=== PATIENT | female | born 1990 | race Caucasian/White ===

== ENCOUNTER 2016-04-30 06:34 | Day surgery (SDC) | payer OTHER ==
[~2016-04-30 06:34] MED LIST: CEFAZOLIN SODIUM 1 GM in DEXTROSE 5%-WATER 50 ML IV PRN; RINGERS SOLUTION,LACTATED 1,000 ML IV PRN
[2016-04-30] MEDS ORDERED: MIDAZOLAM 2 MG/2 ML INJ ONE ×2 (06:55→06:56)
[2016-04-30] MEDS ORDERED: DIPHENHYDRAMINE HCL 50 MG/ML VIAL ONE (06:55)
[2016-04-30] MEDS ORDERED: FENTANYL CITRATE INJ/PF 100 MCG/2 ML AMPUL ONE (06:56)
[2016-04-30] MEDS ORDERED: ONDANSETRON HCL INJ/PF 4 MG/2 ML SDV ONE (06:56)
[2016-04-30] MEDS ORDERED: PROPOFOL INJ 200 MG/20 ML VIAL IV ONE (06:57)
[2016-04-30] MEDS ORDERED: LIDOCAINE 2% INJ-PF (20 MG/ML) 10 ML AMPUL ONE (06:57)
[2016-04-30] MEDS ORDERED: LIDOCAINE 2% INJ (20 MG/ML) 20 ML MDV ONE (07:24)
[2016-04-30] MEDS ORDERED: BUPIVACAINE HCL 0.5 % INJ/PF 30 ML SDV ONE (07:24)
[2016-04-30] MEDS ORDERED: POVIDONE-IODINE 10% OINTMENT 28.4 GM ONE (07:25)
[2016-04-30] MEDS ORDERED: CEFAZOLIN 1 GM/D5W RTU 1 GM/50 ML RTUPB IV ONE (07:25)
[2016-04-30] MEDS ORDERED: DEXAMETHASONE SOD PHOS INJ 10 MG/1 ML VIAL ONE (07:28)
--- NOTE | 2016-04-30 09:13 | [facility] OPERATIVE REPORT E ---
[facility] Operative Report NAME: VALERY OLSEN AGE: 26Y DATE OF SURGERY: 04/30/2016 ROOM: PREOPERATIVE DIAGNOSIS: Onychoincurvatus hallux bilateral. POSTOPERATIVE DIAGNOSIS: Onychoincurvatus hallux bilateral. PROCEDURES PERFORMED: 1. Partial nail avulsion, medial and lateral nail borders, hallux bilateral. 2. Partial matrixectomy, medial and lateral corners of matrix, hallux bilateral. SURGEON: JAIRO GARCIA D.P.M. SPECIMENS REMOVED: Matrix tissue. PROCEDURE: With the patient laying in a dorsal recumbent position, both feet were prepped and draped in the usual standard sterile orthopedic manner after the local anesthesia was utilized which was a 50/50 mixture of 2% Xylocaine and 0.5% Marcaine. The local anesthesia was infiltrated around the right and left hallux. After the anesthetic effect was accomplished, attention was directed to the right hallux first. The medial and lateral incurvated nail borders of the right hallux were removed in toto and the nail grooves were cleaned from any debris. After that, a digital tourniquet was applied at the base of the right hallux to control hemostasis. The 2 oblique incisions 1 cm in length were placed at the junction of the medial and lateral corners of the eponychium with the proximal medial and lateral corners of the nail grooves. The incisions were angulated about 45 degrees to the long axis of the distal phalanx. At this point, the skin flaps were created and the corners on the medial and lateral side were visualized. Both corners of the matrix were sharply excised. After that, the bone was curetted and finally electrodesiccation was performed to assure total destruction of any remnants of nail tissue which might give free generation of the nail tissue. At this point, the area was irrigated. The spaces were packed with Gelfoam. The skin flaps were repositioned and anchored down with 4-0 nylon using continuous interlocked stitch. A Betadine compression dressing was applied around the right hallux. The digital tourniquet was removed. Circulation to the right hallux returned to normal immediately as the normal digital color and temperature became apparent. Next, attention was directed to the left hallux and exactly the same procedures were performed at this time. The patient tolerated procedures well and left the operating room with stable vital signs and in good condition. The patient was taken to the recovery room alert, conscious, and oriented. There are no permanent disabilities anticipated at this time. DICTATING PHYSICIAN: JAIRO GARCIA D.P.M. [id number] PHY#: [id number] ID: [id number] JOB#: [id number] ACCT: [id number] cc:JAIRO GARCIA D.P.M. >
== END 2016-04-30 09:36 | disposition home or self-care (01) ==
LOC: SC 06:34
PROVIDERS: ATTEND Podiatrist Foot & Ankle Surgery
PROC: 0HTRXZZ Resection of Toe Nail, External Approach (ICD-10-PCS; principal; 2016-04-30 07:30)
DX: L60.3 Nail dystrophy (principal); E03.9 Hypothyroidism, unspecified; Z79.899 Other long term (current) drug therapy
CPT/HCPCS: 88304 ×2; 11750 ×2; J2250; J3490 ×3; J0690; J1200; J3010; J2405; J2704; J1100; 400